=== PATIENT | male | born 1940 | race Asian ===

== ENCOUNTER 2021-04-06 18:15 | Inpatient (IN) | payer MEDICARE ==
[~2021-04-06] VITALS: Ht 165.1 cm; Wt 56.9 kg
[2021-04-06] MEDS ORDERED: SODIUM CHLORIDE 0.9% 2,000 ML IV ONE (20:15)
[2021-04-06 20:30] LABS: BASOPHILS % (AUTO) 0.5 % (0.0-2.0); EOSINOPHILS % (AUTO) 0 % (1.0-6.0); HEMATOCRIT 45.4 % (41-53); HEMOGLOBIN 14.3 g/dL (13.5-17.5); LYMPHOCYTES # (AUTO) 0.4 K/uL (1.0-4.8); LYMPHOCYTES % (AUTO) 6.5 % (22.0-44.0); MEAN CORPUSCULAR HEMOGLOBIN 21.6 pg (26.0-34.0); MEAN CORPUSCULAR HGB CONC 31.4 G/dL (31.0-37.0); MEAN CORPUSCULAR VOLUME 69 fL (80-100); MONOCYTES # (AUTO) 0.5 K/uL (0.1-1.0); MONOCYTES % (AUTO) 7.4 % (2.0-9.0); PLATELET COUNT (AUTO) 148 K/uL (150-450); RED BLOOD CELL COUNT(AUTO) 6.61 MIL/uL (4.50-5.90); RED CELL DISTRIBUTION WIDTH 15.3 % (11.5-14.5)
[2021-04-06 20:31] LABS: NEUTROPHILS % (AUTO) 85.6 % (40.0-70.0)
[2021-04-06 20:39] LABS: ANION GAP 6 mmol/L (8-16); CALCIUM, TOTAL 8.9 mg/dL (8.8-10.5); CARBON DIOXIDE 32 mmol/L (22-29); CHLORIDE 108 mmol/L (98-107); CREATININE 1.15 mg/dL (0.60-1.30); GLUCOSE,RANDOM 116 mg/dL (70-110); POTASSIUM 3.8 mmol/L (3.5-5.1); SODIUM SERUM 146 mmol/L (136-145); UREA NITROGEN, BLOOD 23 mg/dL (7-18)
[2021-04-06 20:44] LABS: COVID AG,FIA SOURCE NASOPHARYNGEAL
[2021-04-06 20:45] LABS: PROTHROMBIN TIME 10.2 SEC (9.4-11.6)
[2021-04-06 20:48] LABS: GLOMERULAR FILTR. RATE CALC > 60 mL/min (>60)
[2021-04-06 20:49] LABS: AMMONIA < 10 umol/L (11-32)
[2021-04-06 20:51] LABS: LACTIC ACID 1.4 mmol/L (0.4-2.0)
[2021-04-06 20:53] LABS: B-TYPE NATRIURETIC PEPTIDE 62 pg/mL (0-100)
[2021-04-06 21:04] LABS: ALANINE AMINOTRANSFERASE 26 U/L (12-78); ALBUMIN 3.5 g/dL (3.4-5.0); ALKALINE PHOSPHATASE 66 U/L (46-116); ASPARTATE AMINOTRANSFERASE 57 U/L (15-37); BILIRUBIN,TOTAL 0.7 mg/dL (0.1-1.0)
[2021-04-06 21:08] LABS: CREATINE KINASE, TOTAL ONLY 1602 U/L (39-308)
[2021-04-06 22:01] LABS: APPEARANCE,URINE SL CLOUDY (CLEAR); BILIRUBIN,URINE NEGATIVE (NEGATIVE); GLUCOSE, URINE (UA) NEGATIVE (NEGATIVE); KETONES,URINE 40 mg/dL (NEGATIVE); LEUKOCYTE ESTERASE ,URINE NEGATIVE (NEGATIVE); OCCULT BLOOD,URINE MODERATE (NEGATIVE); PH,URINE 5.5 (5.0-8.0); PROTEIN,URINE SEE CONFIRM (NEGATIVE)
[2021-04-06 22:06] LABS: AMPHET/METH SCREEN,URINE NEGATIVE (NEGATIVE); BARBITURATE SCREEN, URINE NEGATIVE (NEGATIVE); BENZODIAZEPINES SCREEN,URINE NEGATIVE (NEGATIVE); CANNABINOID SCREEN,URINE NEGATIVE (NEGATIVE); COCAINE SCREEN,URINE NEGATIVE (NEGATIVE); METHADONE SCREEN, URINE NEGATIVE (NEGATIVE); OPIATE SCREEN,URINE NEGATIVE (NEGATIVE)
[2021-04-06 22:08] LABS: PHENCYCLIDINE SCREEN,URINE NEGATIVE (NEGATIVE)
[2021-04-06 22:11] LABS: BACTERIA,URINE Rare /HPF (None Seen); NITRATE,URINE NEGATIVE (NEGATIVE); SQUAMOUS EPITHELIAL CELL,UR Rare /LPF (None Seen); SULFOSALICYLIC ACID,URINE 2+ (Negative); WBC,URINE 0-2 /HPF (0-5)
[2021-04-06 23:24] LABS: D-DIMER 0.31 mg/L FEU (0.00-0.50)
[2021-04-06] MEDS ORDERED: ACETAMINOPHEN 325 MG TABLET PO PRN (23:30)
[2021-04-06] MEDS ORDERED: ONDANSETRON HCL 4 MG/2 ML VIAL IVP PRN (23:30)
[2021-04-06 23:32] LABS: FERRITIN 935 ng/mL (26-388); LACTATE DEHYDROGENASE 243 U/L (85-227)
[2021-04-07] MEDS: HEPARIN SODIUM,PORCINE 5,000 UNITS/ML VIAL SQ SCH ×3 (01:51→16:00)
[2021-04-07] MEDS ORDERED: HALOPERIDOL LACTATE 5 MG/ML VIAL IM PRN (02:30)
[2021-04-07] MEDS ORDERED: AMLO-257 PO (03:21)
[2021-04-07] MEDS ORDERED: ACETAMINOPHEN 325 MG TABLET PO PRN (03:30)
[2021-04-07] MEDS ORDERED: ONDANSETRON HCL 4 MG/2 ML VIAL IVP PRN (03:30)
[2021-04-07] MEDS: DEXTROSE 5%-WATER 1,000 ML IV SCH ×2 (03:50→16:01)
[2021-04-07] MEDS ORDERED: HEPARIN SODIUM,PORCINE 5,000 UNITS/ML VIAL SQ SCH (08:00)
[2021-04-07] MEDS ORDERED: SODIUM CHLORIDE 0.45% 1,000 ML IV ONE (10:45)
[2021-04-07] MEDS: ASPIRIN 81 MG CHEWABLE TABLET PO SCH (10:45)
[2021-04-07] MEDS ORDERED: GADOTERATE MEGLUMINE 10 MMOL/20 ML VIAL IVP ONE (11:48)
[2021-04-07 12:44] VITALS: BP 139/75
[2021-04-07] MEDS ORDERED: REMDESIVIR 200 MG in SODIUM CHLORIDE 0.9% 250 ML IV ONE (13:00)
[2021-04-07] MEDS ORDERED: SODIUM CHLORIDE 0.9% 500 ML IV ONE (14:07)
[2021-04-07] MEDS: LORazepam 2 MG/ML VIAL IVP PRN (14:26)
[2021-04-07] MEDS ORDERED: PNEUMOCOCCAL VACCINE POLYVALENT 0.5 ML VIAL [PPSV23] IM. ONE (15:30)
[2021-04-07] MEDS ORDERED: INFLUENZA VIRUS VACCINE QVS 2021-22 (6MO+)/PF 60 MCG/0.5 ML SYRINGE IM. ONE (15:30)
[2021-04-07 21:28] VITALS: BP 155/84
[2021-04-08 01:12] VITALS: BP 157/79
[2021-04-08] MEDS: LORazepam 2 MG/ML VIAL IVP PRN (06:01)
[2021-04-08 06:13] VITALS: BP 150/102
[2021-04-08 07:56] VITALS: BP 138/86
[2021-04-08] MEDS: ASPIRIN 81 MG CHEWABLE TABLET PO SCH (08:02)
[2021-04-08] MEDS: HEPARIN SODIUM,PORCINE 5,000 UNITS/ML VIAL SQ SCH ×4 (08:02→23:27)
[2021-04-08] MEDS: MULTIVITAMINS WITH MINERALS, THERAPEUTIC TABLET PO SCH (08:02)
[2021-04-08 10:54] VITALS: BP 132/78
[2021-04-08 11:12] LABS: ALANINE AMINOTRANSFERASE 27 U/L (12-78); ALBUMIN 2.9 g/dL (3.4-5.0); ALKALINE PHOSPHATASE 56 U/L (46-116); ANION GAP 9 mmol/L (8-16); ASPARTATE AMINOTRANSFERASE 54 U/L (15-37); BILIRUBIN,TOTAL 0.6 mg/dL (0.1-1.0); CALCIUM, TOTAL 8.5 mg/dL (8.8-10.5); CARBON DIOXIDE 28 mmol/L (22-29); CHLORIDE 109 mmol/L (98-107); CREATININE 0.98 mg/dL (0.60-1.30); GLUCOSE,RANDOM 109 mg/dL (70-110); POTASSIUM 3.1 mmol/L (3.5-5.1); SODIUM SERUM 146 mmol/L (136-145); TOTAL PROTEIN, SERUM 6.9 g/dL (6.4-8.2); UREA NITROGEN, BLOOD 30 mg/dL (7-18)
[2021-04-08 11:15] LABS: GLOMERULAR FILTR. RATE CALC > 60 mL/min (>60)
[2021-04-08] MEDS: DEXTROSE 5%-WATER 1,000 ML IV SCH (14:47)
[2021-04-08 16:13] VITALS: BP 158/74
[2021-04-08] MEDS: REMDESIVIR 100 MG in SODIUM CHLORIDE 0.9% 250 ML IV SCH (16:16)
[2021-04-08 20:37] VITALS: BP 139/88
[2021-04-08] MEDS ORDERED: POTASSIUM CHLORIDE 20 MEQ ER TABLET PO PRN (22:45)
[2021-04-08] MEDS: POTASSIUM CHL 10 MEQ/WATER 50 ML IV PRN (23:27)
[2021-04-09 00:35] VITALS: BP 155/83
[2021-04-09] MEDS: POTASSIUM CHL 10 MEQ/WATER 50 ML IV PRN ×2 (00:57→03:24)
[2021-04-09] MEDS: DEXTROSE 5%-WATER 1,000 ML IV SCH (03:24)
[2021-04-09 05:23] VITALS: BP 157/83
[2021-04-09 08:00] VITALS: BP 160/70
[2021-04-09 08:45] LABS: ALKALINE PHOSPHATASE 54 U/L (46-116); ANION GAP 8 mmol/L (8-16); ASPARTATE AMINOTRANSFERASE 38 U/L (15-37); BILIRUBIN,TOTAL 0.6 mg/dL (0.1-1.0); CALCIUM, TOTAL 8.1 mg/dL (8.8-10.5); CARBON DIOXIDE 26 mmol/L (22-29); CHLORIDE 107 mmol/L (98-107); CREATININE 0.94 mg/dL (0.60-1.30); GLUCOSE,RANDOM 114 mg/dL (70-110); POTASSIUM 3.4 mmol/L (3.5-5.1); SODIUM SERUM 141 mmol/L (136-145); UREA NITROGEN, BLOOD 21 mg/dL (7-18)
[2021-04-09 08:46] LABS: ALANINE AMINOTRANSFERASE 27 U/L (12-78); ALBUMIN 2.8 g/dL (3.4-5.0); C-REACTIVE PROTEIN QUANT 1.81 mg/dL (0.00-0.30); TOTAL PROTEIN, SERUM 6.6 g/dL (6.4-8.2)
[2021-04-09 08:47] LABS: GLOMERULAR FILTR. RATE CALC > 60 mL/min (>60)
[2021-04-09] MEDS: MULTIVITAMINS WITH MINERALS, THERAPEUTIC TABLET PO SCH (09:54)
[2021-04-09] MEDS: HEPARIN SODIUM,PORCINE 5,000 UNITS/ML VIAL SQ SCH ×2 (09:54→16:56)
[2021-04-09] MEDS: ASPIRIN 81 MG CHEWABLE TABLET PO SCH (09:54)
[2021-04-09 12:00] VITALS: BP 168/68
[2021-04-09 16:00] VITALS: BP 158/60
[2021-04-09] MEDS: REMDESIVIR 100 MG in SODIUM CHLORIDE 0.9% 250 ML IV SCH (16:56)
[2021-04-09 20:45] VITALS: BP 133/64
[2021-04-10] MEDS: HEPARIN SODIUM,PORCINE 5,000 UNITS/ML VIAL SQ SCH ×3 (00:10→16:00)
[2021-04-10 00:58] VITALS: BP 122/74
[2021-04-10 08:55] LABS: BASOPHILS % (AUTO) 0.2 % (0.0-2.0); EOSINOPHILS % (AUTO) 0.1 % (1.0-6.0); HEMATOCRIT 43.1 % (41-53); HEMOGLOBIN 13.9 g/dL (13.5-17.5); LYMPHOCYTES # (AUTO) 0.4 K/uL (1.0-4.8); LYMPHOCYTES % (AUTO) 9.4 % (22.0-44.0); MEAN CORPUSCULAR HEMOGLOBIN 21.6 pg (26.0-34.0); MEAN CORPUSCULAR HGB CONC 32.2 G/dL (31.0-37.0); MEAN CORPUSCULAR VOLUME 67 fL (80-100); MONOCYTES # (AUTO) 0.4 K/uL (0.1-1.0); MONOCYTES % (AUTO) 9.2 % (2.0-9.0); NEUTROPHILS # (AUTO) 3.7 K/uL (1.8-7.7); NEUTROPHILS % (AUTO) 81.1 % (40.0-70.0); PLATELET COUNT (AUTO) 227 K/uL (150-450); RED CELL DISTRIBUTION WIDTH 14.9 % (11.5-14.5)
[2021-04-10] MEDS: MULTIVITAMINS WITH MINERALS, THERAPEUTIC TABLET PO SCH (09:00)
[2021-04-10] MEDS: ASPIRIN 81 MG CHEWABLE TABLET PO SCH (09:00)
[2021-04-10 09:42] LABS: ALANINE AMINOTRANSFERASE 27 U/L (12-78); ALKALINE PHOSPHATASE 66 U/L (46-116); ANION GAP 11 mmol/L (8-16); ASPARTATE AMINOTRANSFERASE 36 U/L (15-37); C-REACTIVE PROTEIN QUANT 2.47 mg/dL (0.00-0.30); CALCIUM, TOTAL 8.5 mg/dL (8.8-10.5); CARBON DIOXIDE 30 mmol/L (22-29); CHLORIDE 106 mmol/L (98-107); CREATININE 1.13 mg/dL (0.60-1.30); FERRITIN 1242 ng/mL (26-388); FREE T4 (FREE THYROXINE) 1.45 ng/dL (0.76-1.46); GLUCOSE,RANDOM 93 mg/dL (70-110); POTASSIUM 3.5 mmol/L (3.5-5.1); SODIUM SERUM 147 mmol/L (136-145); THYROID STIMULATING HORMONE 0.68 uIU/mL (0.36-3.74); TOTAL PROTEIN, SERUM 6.9 g/dL (6.4-8.2); UREA NITROGEN, BLOOD 19 mg/dL (7-18)
[2021-04-10 09:44] LABS: GLOMERULAR FILTR. RATE CALC > 60 mL/min (>60)
[2021-04-10 09:49] VITALS: BP 159/86
[2021-04-10 16:00] VITALS: BP 160/99
[2021-04-10] MEDS: REMDESIVIR 100 MG in SODIUM CHLORIDE 0.9% 250 ML IV SCH (16:01)
[2021-04-10 20:27] VITALS: BP 160/88
[2021-04-10 23:37] VITALS: BP 158/91
[2021-04-11] VITALS: BP 136/93
[2021-04-11 04:30] VITALS: BP 146/94
[2021-04-11 06:13] LABS: BASOPHILS % (AUTO) 0.2 % (0.0-2.0); EOSINOPHILS % (AUTO) 0.2 % (1.0-6.0); HEMOGLOBIN 13.8 g/dL (13.5-17.5); LYMPHOCYTES # (AUTO) 0.3 K/uL (1.0-4.8); LYMPHOCYTES % (AUTO) 5.8 % (22.0-44.0); MEAN CORPUSCULAR HEMOGLOBIN 21.6 pg (26.0-34.0); MEAN CORPUSCULAR HGB CONC 32.1 G/dL (31.0-37.0); MEAN CORPUSCULAR VOLUME 67 fL (80-100); MONOCYTES # (AUTO) 0.5 K/uL (0.1-1.0); MONOCYTES % (AUTO) 9.1 % (2.0-9.0); NEUTROPHILS # (AUTO) 4.6 K/uL (1.8-7.7); NEUTROPHILS % (AUTO) 84.7 % (40.0-70.0); PLATELET COUNT (AUTO) 243 K/uL (150-450); RED BLOOD CELL COUNT(AUTO) 6.39 MIL/uL (4.50-5.90); RED CELL DISTRIBUTION WIDTH 14.8 % (11.5-14.5)
[2021-04-11 07:10] LABS: ALANINE AMINOTRANSFERASE 33 U/L (12-78); ALBUMIN 3.1 g/dL (3.4-5.0); ALKALINE PHOSPHATASE 72 U/L (46-116); ANION GAP 12 mmol/L (8-16); ASPARTATE AMINOTRANSFERASE 38 U/L (15-37); BILIRUBIN,TOTAL 0.8 mg/dL (0.1-1.0); C-REACTIVE PROTEIN QUANT 2.91 mg/dL (0.00-0.30); CALCIUM, TOTAL 8.4 mg/dL (8.8-10.5); CARBON DIOXIDE 28 mmol/L (22-29); CHLORIDE 106 mmol/L (98-107); CREATININE 1.13 mg/dL (0.60-1.30); FERRITIN 1256 ng/mL (26-388); GLUCOSE,RANDOM 92 mg/dL (70-110); POTASSIUM 3.2 mmol/L (3.5-5.1); SODIUM SERUM 146 mmol/L (136-145); UREA NITROGEN, BLOOD 20 mg/dL (7-18)
[2021-04-11 07:23] LABS: GLOMERULAR FILTR. RATE CALC > 60 mL/min (>60)
[2021-04-11 07:32] VITALS: BP 154/82
[2021-04-11] MEDS: HEPARIN SODIUM,PORCINE 5,000 UNITS/ML VIAL SQ SCH ×4 (09:11→22:53)
[2021-04-11] MEDS: ASPIRIN 81 MG CHEWABLE TABLET PO SCH (09:12)
[2021-04-11] MEDS: MULTIVITAMINS WITH MINERALS, THERAPEUTIC TABLET PO SCH (09:12)
[2021-04-11 11:16] LABS: APPEARANCE,URINE CLEAR (CLEAR); BILIRUBIN,URINE NEGATIVE (NEGATIVE); GLUCOSE, URINE (UA) NEGATIVE (NEGATIVE); KETONES,URINE >=80 mg/dL (NEGATIVE); LEUKOCYTE ESTERASE ,URINE NEGATIVE (NEGATIVE); NITRATE,URINE POSITIVE (NEGATIVE); OCCULT BLOOD,URINE NEGATIVE (NEGATIVE); PH,URINE 5.5 (5.0-8.0); PROTEIN,URINE TRACE (NEGATIVE)
[2021-04-11 12:14] LABS: BACTERIA,URINE None Seen /HPF (None Seen); RBC,URINE None Seen /HPF (0-2); SQUAMOUS EPITHELIAL CELL,UR Few /LPF (None Seen)
[2021-04-11] MEDS: REMDESIVIR 100 MG in SODIUM CHLORIDE 0.9% 250 ML IV SCH (15:45)
[2021-04-11 20:24] VITALS: BP 149/81
[2021-04-12 01:12] VITALS: BP 136/96
[2021-04-12 04:47] VITALS: BP 144/84
[2021-04-12 08:17] VITALS: BP 110/126
[2021-04-12 08:18] VITALS: BP 157/97
[2021-04-12] MEDS: HEPARIN SODIUM,PORCINE 5,000 UNITS/ML VIAL SQ SCH ×2 (08:22→16:37)
[2021-04-12] MEDS: ASPIRIN 81 MG CHEWABLE TABLET PO SCH (08:23)
[2021-04-12] MEDS: MULTIVITAMINS WITH MINERALS, THERAPEUTIC TABLET PO SCH (08:23)
[2021-04-12 16:02] VITALS: BP 171/83
[2021-04-12 19:05] VITALS: BP 165/98
[2021-04-13] MEDS: HEPARIN SODIUM,PORCINE 5,000 UNITS/ML VIAL SQ SCH ×2 (00:09→09:07)
[2021-04-13] MEDS: AmLODIPine BESYLATE 5 MG TABLET PO SCH ×2 (01:25→09:07)
[2021-04-13 08:23] VITALS: BP 154/89
[2021-04-13] MEDS: ASPIRIN 81 MG CHEWABLE TABLET PO SCH (09:07)
[2021-04-13] MEDS: MULTIVITAMINS WITH MINERALS, THERAPEUTIC TABLET PO SCH (09:07)
== END 2021-04-13 14:30 | disposition home health service (06) | DRG 177 ==
LOC: EMS 18:18 → 5N 04-07 09:58 → 6N 04-11 00:13
PROVIDERS: ADMIT Internal Medicine; ATTEND Internal Medicine
PROC: XW033E5 Introduction of Remdesivir Anti-infective into Peripheral Vein, Percutaneous Approach, New Technology Group 5 (ICD-10-PCS; principal; 2021-04-07)
DX: U07.1 COVID-19 (principal); J12.82 Pneumonia due to coronavirus disease 2019; G93.40 Encephalopathy, unspecified; E87.1 Hypo-osmolality and hyponatremia; E44.0 Moderate protein-calorie malnutrition; I10 Essential (primary) hypertension; F02.80 Dementia in other diseases classified elsewhere, unspecified severity, without behavioral disturbance, psychotic disturbance, mood disturbance, and anxiety; G30.9 Alzheimer's disease, unspecified; R53.81 Other malaise; R62.7 Adult failure to thrive; R41.0 Disorientation, unspecified; Z78.9 Other specified health status; Z68.20 Body mass index [BMI] 20.0-20.9, adult
CPT/HCPCS: 51702; 70450; 70553; 71045; 80053; 81001; 81002; 82140; 82550; 82728; 83605; 83615; 83880; 84132; 84145; 84439; 84443; 84484; 85025; 85379; 85384; 85610; 85730; 86140; 87040; 92526; 92610; 93005; 97116; 97162; 97530; 99285; J1644; J2060; J3480; J7040; J7050; J7060; Q9967; 36415-L1; 36415-TC

== ENCOUNTER 2021-08-06 20:31 | Emergency (ER) | payer MEDICARE ==
[~2021-08-06 20:31] MED LIST: AMLO-257 PO
[2021-08-06 21:47] LABS: BASOPHILS % (AUTO) 0.2 % (0.0-2.0); EOSINOPHILS % (AUTO) 0.1 % (1.0-6.0); LYMPHOCYTES # (AUTO) 0.4 K/uL (1.0-4.8); LYMPHOCYTES % (AUTO) 3.8 % (22.0-44.0); MEAN CORPUSCULAR HEMOGLOBIN 21.5 pg (26.0-34.0); MEAN CORPUSCULAR HGB CONC 30.9 G/dL (31.0-37.0); MEAN CORPUSCULAR VOLUME 70 fL (80-100); MONOCYTES # (AUTO) 0.4 K/uL (0.1-1.0); NEUTROPHILS # (AUTO) 8.9 K/uL (1.8-7.7); NEUTROPHILS % (AUTO) 91.9 % (40.0-70.0); PLATELET COUNT (AUTO) 184 K/uL (150-450); RED BLOOD CELL COUNT(AUTO) 6.04 MIL/uL (4.50-5.90); RED CELL DISTRIBUTION WIDTH 14.9 % (11.5-14.5)
[2021-08-06 21:51] VITALS: BP 138/76
[2021-08-06 21:57] LABS: CALCIUM, TOTAL 8.1 mg/dL (8.8-10.5); CREATININE 1.35 mg/dL (0.60-1.30); POTASSIUM 4.5 mmol/L (3.5-5.1)
[2021-08-06 22:01] LABS: ALBUMIN 3.5 g/dL (3.4-5.0); BILIRUBIN,TOTAL 0.3 mg/dL (0.1-1.0); TOTAL PROTEIN, SERUM 6.9 g/dL (6.4-8.2)
[2021-08-06] MEDS ORDERED: AMOX250C4 PO (22:47)
== END 2021-08-07 06:30 | disposition home or self-care (01) ==
LOC: EMS 20:34
DX: T17.928A Food in respiratory tract, part unspecified causing other injury, initial encounter (principal); I10 Essential (primary) hypertension; X58.XXXA Exposure to other specified factors, initial encounter; Y93.89 Activity, other specified; Y92.89 Other specified places as the place of occurrence of the external cause; Y99.8 Other external cause status
CPT/HCPCS: 71046; 80053; 85025; 99284; 36415-L1; 36415-TC